=== PATIENT | female | born 1985 | race Caucasian/White ===

== ENCOUNTER 2022-01-18 11:11 | Outpatient (REF) | payer OTHER, SELFPAY ==
--- NOTE | ~2022-01-18 | XR_ITS ---
EXAMINATION: XR LUMBAR SPINE SERIES XR SACROILIAC JOINT SERIES CLINICAL INFORMATION: Low back pain. COMPARISON: None. TECHNIQUE: 5 views including obliques of the lumbosacral spine. 3 views of the sacroiliac joints including AP and obliques. FINDINGS: Lumbar Sacral Spine: Vertebral bodies normally aligned with disc spaces normal. Vertebral body height normal. Facets normal. Surrounding bone and soft tissues unremarkable. Sacroiliac Joints: The joints bone and surrounding soft tissues are normal. XR/XR sacroiliac joint min 3V IMPRESSION: Normal x-ray series of the lumbosacral spine and sacroiliac joints.
--- NOTE | ~2022-01-18 | XR_ITS ---
EXAMINATION: XR LUMBAR SPINE SERIES XR SACROILIAC JOINT SERIES CLINICAL INFORMATION: Low back pain. COMPARISON: None. TECHNIQUE: 5 views including obliques of the lumbosacral spine. 3 views of the sacroiliac joints including AP and obliques. FINDINGS: Lumbar Sacral Spine: Vertebral bodies normally aligned with disc spaces normal. Vertebral body height normal. Facets normal. Surrounding bone and soft tissues unremarkable. Sacroiliac Joints: The joints bone and surrounding soft tissues are normal. XR/XR lumbar spine 4V min IMPRESSION: Normal x-ray series of the lumbosacral spine and sacroiliac joints.
[2022-01-18 11:54] LABS: MANUAL DIFF FLAG NO
[2022-01-18 12:41] LABS: Basophils Percent Auto 0.5 % (0-2); Eosinophils Absolute Auto 0.1 X10*3/uL (0.0-0.4); Eosinophils Percent Auto 2.1 % (0-4); Hematocrit 44.6 % (37.0-47.0); Hemoglobin 14.9 g/dl (12.0-16.0); Imm Gran Abs Auto 0.01 X10*3/uL (0.00-0.03); Imm Gran Pct Auto 0.2 % (0.0-0.4); Lymphocytes Absolute Auto 1.4 X10*3/uL (1.2-4.9); Lymphocytes Percent Auto 24.1 % (20-40); Mean Corpuscular HGB Conc 33.4 g/dl (31.0-35.0); Mean Corpuscular Hemoglobin 30.7 pg (27.0-33.0); Mean Platelet Volume 10.9 fL (9.4-12.3); Monocytes Absolute Auto 0.3 X10*3/uL (0.1-1.2); Monocytes Percent Auto 5.1 % (2-11); Neutrophils Absolute Auto 3.9 x10*3/uL (2.0-8.3); Platelet Count 168 X10*3/uL (160-400); Red Blood Count 4.85 X10*6/uL (4.20-5.50); Red Cell Distribution Width 12.9 % (11.0-16.0); White Blood Count 5.7 X10*3/uL (4.8-10.8)
[2022-01-18 13:11] LABS: Alanine Aminotransferase 35 U/L (0-31); Albumin Level 4.2 g/dL (3.5-5.0); Alkaline Phosphatase 82 U/L (39-117); Anion Gap 16 (12-20); Aspartate Amino Transferase 31 U/L (5-31); Bilirubin Total 0.4 mg/dL (0.0-1.0); Blood Urea Nitrogen 10 mg/dL (9-16); C Reactive Protein 0.48 mg/dL (< or = 0.50); Calcium 8.8 mg/dL (8.4-10.2); Carbon Dioxide 24 mmol/L (22-29); Chloride 104 mmol/L (96-108); Estimated Glomerular Filt Rate > 60; Glucose Random 78 mg/dL (60-115); Sodium 140 mmol/L (135-145); Total Protein 7.4 g/dL (6.5-8.0)
[2022-01-18 13:25] LABS: Erythrocyte Sedimentation Rate 12 MM/HR (0-20)
[2022-01-18 13:26] LABS: Rheumatoid Factor < 15.0 IU/mL (<15.0)
[2022-01-18 13:31] LABS: Free T4 (Free Thyroxine) 1.01 ng/dL (0.71-1.85); Thyroid Stimulating Hormone 1.57 uIU/mL (0.32-4.0)
[2022-01-18 13:35] LABS: Appearance Urine Clear; Color Urine Yellow; Glucose Urine UA Negative (Negative); Leukocyte Esterase Urine Small (1+) (Negative); Nitrite Urine Negative (Negative); PH 5.5 (5.0-9.0); Urine Blood Negative (Negative); Urine Ketones Negative (Negative); Urine Protein Negative (Neg-Trace)
[2022-01-18 13:41] LABS: Bacteria Urine 1+ (None Seen); Hyaline Casts Urine 0-2 /LPF (0-2); RBC Urine 0-2 /HPF (0-2); WBC Urine 21-50 /HPF (0-5)
[2022-01-18 13:42] LABS: Creatinine Urine 138.23 mg/dL; Protein/Creatinine Ratio, Ur 0.09 (<0.2); Total Protein Urine Random 12 mg/dL (<12)
[2022-01-20 09:36] LABS: Anti DNA DS Antibody <1 IU/mL; Antibody to SS-A Antigen <1.0 NEG AI (<1.0 NEG); Antibody to SS-B Antigen <1.0 NEG AI (<1.0 NEG); Myeloperoxidase Antibody <1.0 AI; Proteinase 3 PR3 Antibodies <1.0 AI; SM/Ribonucleoprotein Ab <1.0 NEG AI (<1.0 NEG); Scleroderma 70 Antibody <1.0 NEG AI (<1.0 NEG); Smith Protein <1.0 NEG AI (<1.0 NEG); Thyroglobulin Antibodies <1 IU/mL (< or = 1); Thyroid Peroxidase Antibodies <1 IU/mL (<9)
[2022-01-20 12:57] LABS: Anti-Centromere B Antibodies <1.0 NEG AI (<1.0 NEG)
[2022-01-20 15:46] LABS: Complement C3 133 mg/dL (83-193)
[2022-01-20 18:07] LABS: Cyclic Citrullinated Peptide <16 UNITS
[2022-01-21 05:21] LABS: DRVVT 1:1 Mix Interpretation Not Indicated; PTT (LAC) Screen 34 sec (<=40)
[2022-01-21 08:32] LABS: Cardiolipin IgG Ab <2.0 GPL-U/mL; Cardiolipin IgM Ab <2.0 MPL-U/mL
[2022-01-22 12:21] LABS: HLA B27 Negative (Negative)
[2022-01-25 04:17] LABS: Beta-2 Glycoprotein IgA <2.0 U/mL (<20.0); Beta-2 Glycoprotein IgG <2.0 U/mL (<20.0); Beta-2 Glycoprotein IgM 12.4 U/mL (<20.0)
== END 2022-01-18 11:12 | disposition home or self-care (01) ==
LOC: HO.LAB 11:11
PROVIDERS: PCP Nurse Practitioner Family; Visit Provider Student in an Organized Health Care Education/Training Program
DX: H20.9 Unspecified iridocyclitis (principal); M25.561 Pain in right knee; I73.00 Raynaud's syndrome without gangrene; R63.4 Abnormal weight loss; R76.8 Other specified abnormal immunological findings in serum; M54.50 Low back pain, unspecified; G89.29 Other chronic pain
CPT/HCPCS: 72110; 72202; 80053; 81001; 81374; 84156; 84439; 84443; 85025; 85597; 85613; 85652; 85730; 86021; 86038; 86140; 86146; 86147; 86160; 86200; 86225; 86235; 86376; 86431; 86800; 86812; 99202

== ENCOUNTER → 2022-02-17 12:58 | Outpatient (BNVA) | payer OTHER, SELFPAY | PROVIDERS: PCP Nurse Practitioner Family; Visit Provider Student in an Organized Health Care Education/Training Program | DX: H20.9 Unspecified iridocyclitis (principal); R76.8 Other specified abnormal immunological findings in serum; M54.50 Low back pain, unspecified; G89.29 Other chronic pain; I73.00 Raynaud's syndrome without gangrene; R74.01 Elevation of levels of liver transaminase levels | CPT/HCPCS: 99212 ==